=== PATIENT | male | born 1955 | race Caucasian/White ===

== ENCOUNTER 2016-05-29 17:05 | Inpatient (IN) | payer MEDICARE, OTHER ==
[~2016-05-29] VITALS: Ht 177.8 cm; Wt 65.8 kg
[2016-05-29] MEDS ORDERED: CLON2TAB PO (17:16)
[2016-05-29] MEDS ORDERED: FLUO20CA36 PO (17:16)
[2016-05-29 17:36] LABS: BASOPHILS # (AUTO) 0.2 /CMM (0.0-0.2); BASOPHILS % (AUTO) 1.9 % (0.0-2.0); DIFF TOTAL % 100 %; EOSINOPHILS # (AUTO) 0.1 /CMM (0.0-0.7); EOSINOPHILS % (AUTO) 1.6 % (0.0-6.0); HEMATOCRIT 39 % (39-51); HEMOGLOBIN 13.5 g/dL (13.5-17.5); LYMPHOCYTES # (AUTO) 1.4 /CMM (0.8-4.8); LYMPHOCYTES % (AUTO) 16.1 % (20.0-44.0); MEAN CORPUSCULAR HEMOGLOBIN 32 PG (26.0-33.0); MEAN CORPUSCULAR HGB CONC 34 g/dl (31.0-36.0); MEAN CORPUSCULAR VOLUME 94 fL (80-96); MONOCYTES # (AUTO) 0.8 /CMM (0.1-1.30); MONOCYTES % (AUTO) 9.3 % (2.0-12.0); NEUTROPHILS # (AUTO) 6.2 /CMM (1.8-8.9); NEUTROPHILS % (AUTO) 71.1 % (43.0-81.0); PLATELET COUNT (AUTO) 328 /CMM (150-450); WHITE BLOOD COUNT (AUTO) 8.8 K/uL (4.3-11.0)
[2016-05-29 17:43] LABS: ANION GAP 12 (5-14); CALCIUM, SERUM 8.6 mg/dL (8.5-10.1); CARBON DIOXIDE 30 mmol/L (21-32); CHLORIDE 102 mmol/L (98-107); CREATININE 1.2 mg/dL (0.6-1.3); GFR 61 mL/min (>60); GLUCOSE 102 mg/dL (74-106); POTASSIUM 4.1 mmol/L (3.5-5.1); SODIUM SERUM 140 mmol/L (136-145); UREA NITROGEN, BLOOD 20 mg/dL (7-18)
[2016-05-29 17:49] LABS: ALANINE AMINOTRANSFERASE 22 U/L (12-78); ALBUMIN 3.7 g/dL (3.4-5.0); ASPARTATE AMINOTRANSFERASE 14 U/L (15-37); BILIRUBIN,DIRECT 0.1 mg/dL (0.0-0.2); BILIRUBIN,TOTAL 0.4 mg/dL (0.2-1.0); INDIRECT BILIRUBIN 0.3 mg/dL (0.0-1.1); TOTAL PROTEIN, SERUM 6.6 g/dL (6.4-8.2)
[2016-05-29 17:56] LABS: ACETAMINOPHEN < 10 ug/ml (10-30); SALICYLATE 0.8 mg/dL (2.8-20.0)
[2016-05-29 18:20] LABS: ADD UA MICROSCOPIC NO; KETONES,URINE Negative (NEGATIVE); LEUKOCYTE ESTERASE ,URINE Negative (NEGATIVE)
[2016-05-29 18:32] LABS: CANNABINOID, URINE NEGATIVE (NEGATIVE); PHENCYCLIDINE SCREEN,URINE NEGATIVE (NEGATIVE)
[2016-05-29] MEDS ORDERED: MAGNESIUM HYDROXIDE 30 ML UDC PO PRN (21:30)
[2016-05-29] MEDS ORDERED: MAG HYDROX/AL HYDROX/SIMETH 30 ML UDC PO PRN (21:30)
[2016-05-29] MEDS ORDERED: LORAZEPAM 0.5 MG TABLET PO PRN (21:30)
[2016-05-29] MEDS ORDERED: ACETAMINOPHEN 325 MG TABLET PO PRN (21:30)
[2016-05-29] MEDS ORDERED: ZOLPIDEM TARTRATE 5 MG TABLET ONE (22:15)
[2016-05-29] MEDS: ZOLPIDEM TARTRATE 5 MG TABLET PO PRN (22:20)
[2016-05-30 02:29] VITALS: BP 149/97
[2016-05-30 08:00] VITALS: BP 124/78
[2016-05-30 16:00] VITALS: BP 144/83
[2016-05-30] MEDS: VENLAFAXINE XR 75 MG CAP.SR.24H PO SCH (17:18)
[2016-05-30 20:13] VITALS: BP 121/66
[2016-05-30] MEDS: ZOLPIDEM TARTRATE 5 MG TABLET PO PRN (21:38)
[2016-05-31 08:00] VITALS: BP 126/76
[2016-05-31] MEDS: ARIPIPRAZOLE 2 MG TABLET PO SCH (08:30)
[2016-05-31] MEDS: LORAZEPAM 0.5 MG TABLET PO PRN (08:31)
[2016-05-31] MEDS: VENLAFAXINE XR 75 MG CAP.SR.24H PO SCH (08:31)
[2016-05-31 16:00] VITALS: BP 130/83
[2016-05-31 20:00] VITALS: BP 136/79
[2016-06-01] MEDS: ZOLPIDEM TARTRATE 5 MG TABLET PO PRN ×2 (00:39→21:50)
[2016-06-01 06:30] LABS: BASOPHILS % (AUTO) 0.6 % (0.0-2.0); DIFF TOTAL % 100 %; EOSINOPHILS # (AUTO) 0.2 /CMM (0.0-0.7); EOSINOPHILS % (AUTO) 2.3 % (0.0-6.0); HEMATOCRIT 42 % (39-51); HEMOGLOBIN 14.1 g/dL (13.5-17.5); LYMPHOCYTES # (AUTO) 1.7 /CMM (0.8-4.8); LYMPHOCYTES % (AUTO) 22.9 % (20.0-44.0); MEAN CORPUSCULAR HEMOGLOBIN 32 PG (26.0-33.0); MEAN CORPUSCULAR HGB CONC 34 g/dl (31.0-36.0); MEAN CORPUSCULAR VOLUME 94 fL (80-96); MONOCYTES # (AUTO) 0.6 /CMM (0.1-1.30); MONOCYTES % (AUTO) 8.7 % (2.0-12.0); NEUTROPHILS # (AUTO) 4.8 /CMM (1.8-8.9); NEUTROPHILS % (AUTO) 65.5 % (43.0-81.0); PLATELET COUNT (AUTO) 297 /CMM (150-450); RED BLOOD CELL COUNT(AUTO) 4.42 MIL/uL (4.5-6.0); WHITE BLOOD COUNT (AUTO) 7.3 K/uL (4.3-11.0)
[2016-06-01 06:52] LABS: CALCIUM, SERUM 8.6 mg/dL (8.5-10.1)
[2016-06-01 08:00] VITALS: BP 141/87
[2016-06-01] MEDS: VENLAFAXINE XR 75 MG CAP.SR.24H PO SCH (08:42)
[2016-06-01] MEDS: ARIPIPRAZOLE 2 MG TABLET PO SCH (08:42)
[2016-06-01] MEDS: LORAZEPAM 0.5 MG TABLET PO PRN (10:28)
[2016-06-01 16:00] VITALS: BP 121/75
[2016-06-01 20:00] VITALS: BP 110/62
[2016-06-02] MEDS: ARIPIPRAZOLE 2 MG TABLET PO SCH (08:57)
[2016-06-02] MEDS: VENLAFAXINE XR 75 MG CAP.SR.24H PO SCH (08:57)
[2016-06-02 09:05] VITALS: BP 123/72
[2016-06-02 15:52] VITALS: BP 142/89
[2016-06-02] MEDS: LORAZEPAM 0.5 MG TABLET PO PRN (16:15)
[2016-06-02 20:00] VITALS: BP 127/89
[2016-06-02] MEDS: ZOLPIDEM TARTRATE 5 MG TABLET PO PRN (22:11)
[2016-06-03] MEDS: LORAZEPAM 0.5 MG TABLET PO PRN (07:09)
[2016-06-03] MEDS: ARIPIPRAZOLE 2 MG TABLET PO SCH (09:25)
[2016-06-03] MEDS: VENLAFAXINE XR 75 MG CAP.SR.24H PO SCH (09:25)
== END 2016-06-03 15:50 | disposition home or self-care (01) | DRG 885 ==
LOC: ER 17:17 → GPS 20:28
PROVIDERS: ADMIT Psychiatry & Neurology Psychiatry; ATTEND Internal Medicine
DX: F33.3 Major depressive disorder, recurrent, severe with psychotic symptoms (principal); I10 Essential (primary) hypertension; E78.5 Hyperlipidemia, unspecified; M54.5 Low back pain; G89.29 Other chronic pain; R79.89 Other specified abnormal findings of blood chemistry; Z91.14 Patient's other noncompliance with medication regimen
CPT/HCPCS: 36415; 80048-TC; 80061-TC; 80076-TC; 80305; 81000-TC; 82565-TC; 83735-TC; 84443-TC; 85025-TC; 87081-TC; A4606; G0480; G6039-TC; Z7610